=== PATIENT | female | born 1990 | race African-American/Black ===

== ENCOUNTER 2019-01-01 15:23 | Emergency (ER) | payer OTHER ==
[~2019-01-01] VITALS: Ht 175.3 cm; Wt 68.0 kg
[2019-01-01 15:27] VITALS: BP 159/85
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
--- NOTE | 2019-01-01 16:00 | NUR ---
PT RE-EVALUATED, NO CHANGE IN CONDITION.
--- NOTE | 2019-01-01 17:20 | NUR ---
PATIENT LEFT WITHOUT BEING SEEN BY DR. STOKES. NO FURTHER CARE PROVIDED FOR PATIENT.
--- NOTE | 2019-01-01 17:20 | NUR ---
PT CALLED X 1 NO RESPONSE
--- NOTE | 2019-01-01 17:30 | NUR ---
PT CALLED X 2 NO REPSONSE
--- NOTE | 2019-01-01 17:34 | NUR ---
CALLED X 1 NO REPONSE
== END 2019-01-01 17:34 | disposition left against medical advice (07) ==
LOC: MED 15:23
DX: M54.2 Cervicalgia (principal); Z53.1 Procedure and treatment not carried out because of patient's decision for reasons of belief and group pressure
CPT/HCPCS: 81002; 81025

== ENCOUNTER 2019-01-02 09:17 | Emergency (ER) | payer OTHER ==
[~2019-01-02] VITALS: Ht 175.3 cm; Wt 68.0 kg
[2019-01-02 09:22] VITALS: BP 136/87
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
--- NOTE | 2019-01-02 10:13 | NUR ---
PT AT XRAY
--- NOTE | 2019-01-02 10:16 | NUR ---
PT RETURNED FROM RAD
--- NOTE | 2019-01-02 10:55 | NUR ---
PT BEING TAKEN TO CT
--- NOTE | 2019-01-02 11:12 | NUR ---
PT RETURNED FROM CT
[2019-01-02] MEDS ORDERED: HYDROcodone/APAP 5/325 MG 1 TAB TAB PO ONE (12:15)
[2019-01-02 12:32] VITALS: BP 130/82
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
== END 2019-01-02 12:32 | disposition home or self-care (01) ==
LOC: MED 09:17
DX: M54.2 Cervicalgia (principal); R51 Headache; M25.512 Pain in left shoulder; Z88.8 Allergy status to other drugs, medicaments and biological substances; V43.52XA Car driver injured in collision with other type car in traffic accident, initial encounter; Y93.89 Activity, other specified; Y92.410 Unspecified street and highway as the place of occurrence of the external cause; Y99.8 Other external cause status
CPT/HCPCS: 70450; 72125; 73030; 81025; 99284; Q0092